=== PATIENT | female | born 1990 | race Caucasian/White ===

== ENCOUNTER 2025-02-14 10:54 | Emergency (ER) | payer OTHER, SELFPAY ==
[2025-02-14 10:57] VITALS: BP 105/69; PULSE 60; RESP 19; TEMP 36.4; O2SAT 98
--- NOTE | 2025-02-14 11:04 | EKG_ITS ---
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
--- NOTE | 2025-02-14 11:04 | XR_ITS ---
EXAMINATION: PA chest single view TECHNIQUE: Upright PA chest single view Date and time: February 14, 2025, 1122 hours INDICATION: Chest pain today FINDINGS: Normal heart size Lungs are clear. Osseous rectors are intact IMPRESSION: No active disease
[2025-02-14 11:07] VITALS: BMI 31.1
[2025-02-14 12:36] LABS: Troponin I < 0.002 ng/mL (0.0-0.045)
--- NOTE | 2025-02-14 12:38 | EDNOTE_ITS ---
ED General RME/HPI General Chief complaint: Arrhythmia/Palpitations Stated complaint: PALPITATIONS Time Seen by Provider: 02/14/25 11:03 Arrival date/time: 02/14/25 10:54 Limitations: no limitations RME / HPI RME / HPI narrative: 34 year old female with history of sternal surgery 3 years ago presents to the ED BIBA from home for evaluation of heart palpitations beginning at 10:00 am today. Accompanied by pain to the center of her chest that radiated to the back. Reportedly took Tums with no change. On arrival to the ED, the patient complains of tingling sensation to her face. Denies fevers, chills, sweats, cough, shortness of breath, abdominal pain, n/v/d, or urinary symptoms. Related Data Home Medications ?Medication ?Instructions ?Recorded ?Confirmed alprazolam 0.5 mg tablet (Xanax) 0.5 mg PO QDAY PRN An xiety 08/07/21 08/07/21 aspirin 81 mg tablet,delayed 81 mg PO QDAY 08/07/21 release gemfibrozil 600 mg tablet 600 mg PO BID 08/07/2108/07 propranolol 40 mg tablet 40 tab PO BID 08/07/2108/07 sertraline 50 mg tablet 50 mg PO QDAY 08/07/2108/07 Previous Rx's ?Medication ?Instructions ?Recorded hydrocodone 5 mg-acetaminophen 325 1 tab PO TID PRN pa in #8 tabs 08/07/21 mg tablet hydrocodone 5 mg-acetaminophen 325 1 tab PO TID PRN pa in #8 tabs 08/07/21 mg tablet ibuprofen 600 mg tablet 600 mg PO TID PRN pain #14 t abs 08/07/21 ibuprofen 600 mg tablet 600 mg PO TID PRN pain #14 t abs 08/07/21 hydroxyzine HCl 25 mg tablet 25 mg PO TID PRN ANXIETY #14 tabs 06/28/22 hydrocodone 7.5 mg-acetaminophen 1 tab PO Q6H PRN pain #16 tabs 12/13/22 325 mg tablet Allergies Allergy/AdvReac Type Severity Reaction Status Date / Time Sulfa (Sulfonamide Allergy Severe Difficulty Verified 02/14/25 11:13 Antibiotics) Breathing Review of Systems Review of Systems Systems Reviewed: All systems reviewed, normal except as documented Past Medical History Past Medical History RESPIRATORY: Positive Asthma GASTROINTESTINAL: Positive Gall Bladder Disease GENITOURINARY: Positive Kidney Stones PSYCHO/SOCIAL: Positive Depression and Anxiety OTHER HISTORY: Positive MRSA Social History SMOKING STATUS: Never smoker ED Exam General Limitations: Present no limitations General appearance: Present alert and anxious Head Head exam: Present atraumatic, normocephalic and normal inspection Eye Eye exam: Present normal appearance, PERRL and EOMI ENT ENT exam: Present normal exam, normal oropharynx and mucous membranes moist Neck Neck exam: Present normal inspection, full ROM and trachea midline Chest Chest inspection: Present normal inspection and symmetric chest wall rise Respiratory Respiratory exam: Present normal lung sounds bilaterally Cardiovascular Cardiovascular exam: Present regular rate, normal rhythm and normal heart sounds Abdominal Exam Abdominal exam: Present soft and normal bowel sounds Extremities Exam Extremities exam: Present normal inspection and full ROM Back Exam Back exam: Present normal inspection and full ROM Neurological Exam Neurological exam: Present alert, oriented X3 and CN II-XII intact Psychiatric Psychiatric exam: Present anxious Skin Skin exam: Present warm, dry, intact and normal color Course Quality Measures none Orders Category Date Time Status EKG (ED ONLY) *Do not use* NOW Care 02/14/25 11:04 Completed CXRP [XR chest 1V portable] Stat Exams 02/14/25 11:04 Completed EKG (ED Only) Stat Exams 02/14/25 11:04 Draft Troponin I Stat Lab 02/14/25 11:36 Completed LORazepam [Ativan] Med 02/14/25 11:04 Discontinued 0.5 mg PO X1 ONE Vital Signs Vital signs: Vital Signs Temperature 97.6 F 02/14/25 10:57 Pulse Rate 60 02/14/25 10:57 Respiratory Rate 19 02/14/25 10:57 Blood Pressure 105/69 02/14/25 10:57 Pulse Oximetry (%) 98 02/14/25 10:57 Oxygen Delivery Method Room Air 02/14/25 10:57 Pulse ox is 98% on room air which is adequate. Discharge Plan Plan Patient Disposition: HOME (Self Care) Patient condition on transfer: Stable Prescriptions/Referrals Prescriptions/Med Rec: No Action aspirin [Aspir-81] 81 mg Tablet,Delayed Release (Dr/Ec) 81 mg PO QDAY alprazolam [Xanax] 0.5 mg Tablet 0.5 mg PO QDAY PRN (Reason: Anxiety) propranolol 40 mg tablet 40 tab PO BID Patient Comments: TAKE 1 TABLET BY MOUTH TWICE A DAY gemfibrozil 600 mg Tablet 600 mg PO BID sertraline 50 mg Tablet 50 mg PO QDAY ibuprofen 600 mg tablet 600 mg PO TID PRN (Reason: pain) Qty: 14 0RF hydrocodone-acetaminophen 5-325 mg tablet 1 tab PO TID MDD 3 PRN (Reason: pain) Qty: 8 0RF hydrocodone-acetaminophen 5-325 mg tablet 1 tab PO TID MDD 3 PRN (Reason: pain) Qty: 8 0RF ibuprofen 600 mg tablet 600 mg PO TID PRN (Reason: pain) Qty: 14 0RF hydroxyzine HCl 25 mg tablet 25 mg PO TID PRN (Reason: ANXIETY ) Qty: 14 0RF hydrocodone-acetaminophen 7.5-325 mg tablet 1 tab PO Q6H MDD 4 PRN (Reason: pain) Qty: 16 0RF Referrals: Yuri Meza MD [Primary Care Provider, Family Practice] - In 1 week Problem List Clinical Impression: Chest pain of uncertain etiology Patient/Caregiver Discharge Instructions Discharge Activity: activity as tolerated Education Materials: ED Chest Pain, Uncertain Cause Additional Instructions: Follow-up with your doctor next week. Take Tylenol 500 mg 1 or 2 tabs every 6 hours for pain. Please rest today. Resume your normal activities tomorrow. Print Language: Ukrainian Stand Alone Forms: [facility] Award Info., Work/School Release, Patient Portal Info Letter MDM Narrative MDM hospital course (for use when minimal MDM required): Viktoria Bro am scribing for and in the presence of Dr. Quiles. Patient remains clinically stable throughout the emergency department visit. We reviewed all the results, analysis, and treatment plans. Patient is amenable to discharge Strict return precautions were outlined. Clinical Information Provided by: patient and EMS Medical Records reviewed [facility] Meds/Rx considered, not ordered None Labs/Rad/Tests considered, not ordered None Chronic Illness/Social Conditions which may negatively complicate care or outcome(s)-explain: None or not applicable EKG Interpretation EKG #1: EKG Interpretation: EKG @ 11:20 am, interpreted by me, normal sinus rhythm, rate 63, no STEMI Labs Lab(s) Interpretation(s): Troponin is unremarkable Imaging Imaging Interpretation(s): Ordering Physician: Livan Quiles MD Date of Service: 02/14/25 Procedure(s): XR chest 1V portable Accession Number(s): [id number] cc: Livan Quiles MD; Moises Larkin MD~ EXAMINATION: PA chest single view TECHNIQUE: Upright PA chest single view Date and time: February 14, 2025, 1122 hours INDICATION: Chest pain today FINDINGS: Normal heart size Lungs are clear. Osseous rectors are intact IMPRESSION: No active disease Dictated By: Moises Larkin MD Signed By: <Electronically signed by Moises Larkin MD in [place]> 02/14/25 1147 Medication Administration(s) Medication Administration History Discontinued Medications Lorazepam (Lorazepam 0.5 Mg Tablet) 0.5 mg PO X1 ONE Stop: 02/14/25 11:05 Last Admin: 02/14/25 11:19 Dose: 0.5 mg Documented By: MF See above Diagnosis Diagnoses ruled out and/or further discussions: Chest pain of unknown etiology
== END 2025-02-14 13:42 | disposition home or self-care (01) ==
PROVIDERS: Emergency Provider Family Medicine; PCP Family Medicine
DX: R07.9 Chest pain, unspecified (principal); I49.8 Other specified cardiac arrhythmias
CPT/HCPCS: 36415; 71045; 84484; 93005; 99283; A9270